=== PATIENT | male | born 1990 | race African-American/Black ===

== ENCOUNTER 2021-03-18 16:38 | Emergency (ER) | payer MEDICAID ==
[~2021-03-18] VITALS: Ht 167.6 cm; Wt 68.2 kg
[~2021-03-18 16:38] MED LIST: LORTAB 5/500 501 TAB PO
[2021-03-18 16:55] VITALS: TEMP 97.8
[2021-03-18 18:30] VITALS: BP 120/74; PULSE 71
== END 2021-03-18 18:30 | disposition home or self-care (01) ==
LOC: COL.ER 16:38
DX: U07.1 COVID-19 (principal); S16.1XXA Strain of muscle, fascia and tendon at neck level, initial encounter; X58.XXXA Exposure to other specified factors, initial encounter